=== PATIENT | female | born 1955 | race Caucasian/White ===

== ENCOUNTER 2021-04-26 13:28 | Emergency (ER) | payer MEDICAID, MEDICARE, OTHER ==
[~2021-04-26] VITALS: Ht 157.5 cm; Wt 72.6 kg
[~2021-04-26 13:28] MED LIST: ASPI-605 PO; BENA5TAB5 PO; GLIP5TAB13 PO; METF-440 PO; PIOG45TA5 PO; [UNRECOGNIZED DRUG - CODE] PO
[2021-04-26 13:34] VITALS: BP 120/71
--- NOTE | 2021-04-26 13:40 | NUR ---
THE PATIENT IS BIB [facility]ILY [facility] FOR C/O RIGHT ANKLE PAIN/SWELLING,INJURED WHILE WALKING ON UNEVEN PAVEMENT. RATES PAIN 05/25. WILL CONTINUE TO MONITOR THE PATIENT.
--- NOTE | 2021-04-26 14:39 | NUR ---
Patient discharged to home in stable condition. Written and verbal after care instructions given. Patient verbalizes understanding of instruction.
== END 2021-04-26 14:39 | disposition home or self-care (01) ==
LOC: ER 13:28
DX: S92.351A Displaced fracture of fifth metatarsal bone, right foot, initial encounter for closed fracture (principal); I10 Essential (primary) hypertension; E11.9 Type 2 diabetes mellitus without complications; Z98.890 Other specified postprocedural states; Z88.0 Allergy status to penicillin; Z79.899 Other long term (current) drug therapy; Z79.82 Long term (current) use of aspirin; Z79.84 Long term (current) use of oral hypoglycemic drugs; X50.1XXA Overexertion from prolonged static or awkward postures, initial encounter; Y93.01 Activity, walking, marching and hiking; Y92.89 Other specified places as the place of occurrence of the external cause; Y99.8 Other external cause status
CPT/HCPCS: 73630-TC

== ENCOUNTER 2021-12-13 11:18 | Emergency (ER) | payer OTHER ==
[~2021-12-13] VITALS: Ht 157.5 cm; Wt 72.6 kg
[2021-12-13 11:27] VITALS: BP 121/75
[2021-12-13] MEDS ORDERED: KETOROLAC TROMETHAMINE 15 MG/ML VIAL ONE (12:03)
[2021-12-13] MEDS: KETOROLAC TROMETHAMINE INJ 30 MG/ML VIAL IM ONE (12:05)
[2021-12-13] MEDS ORDERED: GABA-532 PO (12:08)
== END 2021-12-13 12:28 | disposition home or self-care (01) ==
LOC: ER 11:23
DX: M25.511 Pain in right shoulder (principal); M54.2 Cervicalgia; I10 Essential (primary) hypertension; E11.9 Type 2 diabetes mellitus without complications; Z90.710 Acquired absence of both cervix and uterus; Z90.49 Acquired absence of other specified parts of digestive tract; Z88.0 Allergy status to penicillin; Z79.82 Long term (current) use of aspirin; Z79.891 Long term (current) use of opiate analgesic; Z79.84 Long term (current) use of oral hypoglycemic drugs; Z79.899 Other long term (current) drug therapy; V89.2XXS Person injured in unspecified motor-vehicle accident, traffic, sequela
CPT/HCPCS: 72040; 73030; 96372; 99284; J1885